=== PATIENT | male | born 1990 | race Caucasian/White ===

== ENCOUNTER 2020-10-13 23:53 | Emergency (ER) | payer SELFPAY ==
[~2020-10-13] VITALS: Ht 172.7 cm; Wt 70.0 kg
[2020-10-14 00:38] LABS: BASOPHILS % 0.7 % (0.0-2.0); EOSINOPHILS % 1.2 % (0.0-5.0); HEMATOCRIT. 45.4 % (42.0-52.0); LYMPHOCYTES % 34.4 % (20.0-50.0); MEAN CORPUSCULAR HEMOGLOBIN 30.5 pg (28.0-32.0); MEAN CORPUSCULAR VOLUME 86.4 fL (80.0-94.0); MEAN PLATELET VOLUME 9.3 fl (7.4-10.4); MONOCYTES % 5.8 % (2.0-8.0); NEUTROPHILS % 57.9 % (40.0-76.0); PLATELET 185 x1000/uL (130-400); RED BLOOD CELL COUNT 5.25 mill/uL (4.7-6.1)
[2020-10-14 00:44] LABS: CHLORIDE 106 mEq/L (98-107)
[2020-10-14 00:48] LABS: ETHANOL BLOOD < 10 mg/dL
[2020-10-14 01:17] LABS: CLARITY URINE CLEAR (CLEAR); COLOR URINE YELLOW (YELLOW); KETONES URINE 2+ (NEGATIVE); LEUKOCYTE ESTERASE URINE NEGATIVE (NEGATIVE); NITRITE URINE NEGATIVE (NEGATIVE); OCCULT BLOOD URINE NEGATIVE (NEGATIVE); PROTEIN URINE TRACE (NEGATIVE); SPECIFIC GRAVITY URINE 1.024 (1.005-1.030); UROBILINOGEN URINE 0.2 E.U./dL (0.2-1.0)
[2020-10-14] MEDS ORDERED: LORAZEPAM 0.5MG TABLET PO ONE (01:30)
[2020-10-14 01:31] LABS: *COCAINE SCREEN URINE NEGATIVE (NEGATIVE); METHADONE URINE SCREEN NEGATIVE (NEGATIVE); OPIATES URINE SCREEN NEGATIVE (NEGATIVE)
[2020-10-14 01:32] LABS: *AMPHETAMINES SCREEN URINE NEGATIVE (NEGATIVE); *BARBITURATES SCREEN URINE NEGATIVE (NEGATIVE); *BENZODIAZEPINES SCREEN URINE NEGATIVE (NEGATIVE); CANNABINOID URINE SCREEN PRESUMTIVE POSITIVE (NEGATIVE); PHENCYCLIDINE URINE SCREEN NEGATIVE (NEGATIVE)
[2020-10-14 02:53] VITALS: BP 136/88
== END 2020-10-14 03:11 | disposition home or self-care (01) ==
LOC: ER 23:53
DX: R00.2 Palpitations (principal)
CPT/HCPCS: 36415; 80053; 80305; 80320; 81003; 85025; 93005; 99284; Z7610; G0480